=== PATIENT | female | born 1990 | race Caucasian/White ===

== ENCOUNTER 2016-05-13 14:29 | Emergency (ER) | payer OTHER ==
[~2016-05-13] VITALS: Ht 167.6 cm; Wt 64.9 kg
[~2016-05-13 14:29] MED LIST: AMOXICILLIN500 MG PO; AMOXIL500 MG PO; AUGMENTIN 875 M1 TAB PO; AUGMENTIN 875875 MG PO; BIAXIN500 MG PO; BROMFED-DM 480480 ML PO; CLARITIN10 MG PO; EES400 MG PO; KEFLEX500 M1 PO; KEFLEX500 MG PO; LAMICTAL100 MG PO; LIDEX 0.05% CRE15 GM T; LOTRISONE 0.05%1 CRE TP; MACROBID100 M1 PO; MEDROL DOSEPAK4 MG PO; MOTRIN800 MG PO; NORCO 325 MG-51 TAB PO; OMNICEF300 MG PO; PHENERGAN25 M1 PO; POLYSPORIN OINT15 GM T; PREDNICOT10 MG PO; PRENATAL1 TA3 PO; PROVENTIL0.09 MG/AC IH; TRAMADOL HCL50 MG PO; ULTRAM50 MG PO; VOLTAREN50 M1 PO; ZITHROMAX Z PA250 MG PO; ZOFRAN4 MG PO
[2016-05-13] MEDS ORDERED: PREPLUS CA-FE1 EACH PO (14:39)
[2016-05-13] MEDS ORDERED: AMOXICILLIN500 M3 PO (16:21)
[2016-05-13] MEDS ORDERED: CEPACOL SORE T1 EAC1 MM (16:22)
== END 2016-05-13 14:54 | disposition home or self-care (01) ==
LOC: ED 14:29
DX: J02.9 Acute pharyngitis, unspecified (principal); R09.81 Nasal congestion; H92.03 Otalgia, bilateral

== ENCOUNTER → 2016-11-10 | Outpatient (CLI) | payer OTHER ==
[~2016-11-10] MED LIST changes: +AMOXICILLIN500 M3 PO; +CEPACOL SORE T1 EAC1 MM; +PREPLUS CA-FE1 EACH PO
== END | disposition home or self-care (01) ==
LOC: US 10:08
DX: Z34.80 Encounter for supervision of other normal pregnancy, unspecified trimester (principal); Z3A.00 Weeks of gestation of pregnancy not specified

== ENCOUNTER 2020-06-04 15:28 | Emergency (ER) | payer OTHER ==
[~2020-06-04] VITALS: Ht 165.1 cm; Wt 59.0 kg
[~2020-06-04 15:28] MED LIST changes: +Motrin,Rufen800 MG PO; +NORCO 5-325 TA1 EACH PO
[2020-06-04 16:06] LABS: BASO % 0.2 % (0.0-1.0); EOS % 0.4 % (1.0-4.0); HEMATOCRIT 40.8 % (37.0-47.0); LYMPH % 10.5 % (27.0-41.0); MEAN CELL VOLUME 88.3 fl (81.0-99.0); MEAN CORPUSCULAR HGB 29.2 pg (27.0-31.0); MEAN CORPUSCULAR HGB CONC 33.1 g/dl (33.0-37.0); MEAN PLATELET VOLUME 9.8 fl (9.6-12.3); MONO # 0.4 10*3/uL (0.1-1.0); MONO % 4.3 % (3.0-9.0); NEUT # 8.3 10*3/uL (2.3-7.9); NEUT % 84.4 % (47.0-73.0); PLATELET COUNT AUTOMATED 289 10*3/uL (130-400); RED BLOOD COUNT 4.62 10*6/uL (4.10-5.10); RED CELL DISTRI WIDTH 12.7 % (0-14.5); WHITE BLOOD COUNT 9.9 10*3/uL (4.8-10.8)
[2020-06-04 16:20] LABS: ACT PARTIAL THROMBO TIME 26.8 SECONDS (20.0-32.1); INTERNATIONAL NORM RATIO 1.1 (2.0-3.5)
[2020-06-04 16:24] LABS: ALBUMIN 3.8 gm/dl (3.1-4.5); ALKALINE PHOSPHATASE 67 U/L (45-117); BUN 9 mg/dl (7-24); CHLORIDE 102 mmol/L (98-107); CREATININE 0.83 mg/dL (0.55-1.02); POTASSIUM 3.6 mmol/L (3.5-5.1); SGOT/AST 18 IU/L (3-35); SGPT/ALT 24 U/L (12-78); SODIUM 134 mmol/L (136-145); TOTAL PROTEIN 7.8 gm/dL (6.4-8.2)
[2020-06-04 16:28] LABS: BETA-HCG, QUANT < 1.0 mIU/mL (1-3)
[2020-06-04] MEDS ORDERED: LEXAPRO10 MG PO (16:34)
== END 2020-06-04 16:43 | disposition home or self-care (01) ==
LOC: ED 15:28
PROVIDERS: Family Medicine
DX: F32.9 Major depressive disorder, single episode, unspecified (principal); R53.83 Other fatigue; F17.200 Nicotine dependence, unspecified, uncomplicated; Z79.899 Other long term (current) drug therapy

== ENCOUNTER 2020-07-07 08:31 | Emergency (ER) | payer OTHER ==
[~2020-07-07] VITALS: Wt 59.0 kg
[~2020-07-07 08:31] MED LIST changes: +LEXAPRO10 MG PO
== END 2020-07-07 09:43 | disposition left against medical advice (07) ==
LOC: ED 08:31
DX: T40.601A Poisoning by unspecified narcotics, accidental (unintentional), initial encounter (principal); R40.20 Unspecified coma; F32.9 Major depressive disorder, single episode, unspecified; Z53.29 Procedure and treatment not carried out because of patient's decision for other reasons; Z79.899 Other long term (current) drug therapy; Y92.89 Other specified places as the place of occurrence of the external cause

== ENCOUNTER 2020-10-17 23:05 | Emergency (ER) | payer OTHER ==
[~2020-10-17] VITALS: Ht 165.1 cm; Wt 64.9 kg
[2020-10-17] MEDS ORDERED: SUBOXONE 8 MG-1 EACH SL (23:27)
[2020-10-18] MEDS ORDERED: HYDROCODONE-AC1 EAC1 PO (04:39)
== END 2020-10-18 05:06 | disposition home or self-care (01) ==
LOC: ED 23:05
DX: S52.591A Other fractures of lower end of right radius, initial encounter for closed fracture (principal); S52.611A Displaced fracture of right ulna styloid process, initial encounter for closed fracture; F17.200 Nicotine dependence, unspecified, uncomplicated; Z79.899 Other long term (current) drug therapy; Y04.0XXA Assault by unarmed brawl or fight, initial encounter; Y93.89 Activity, other specified; Y92.89 Other specified places as the place of occurrence of the external cause; Y99.9 Unspecified external cause status

== ENCOUNTER 2020-11-13 19:57 | Emergency (ER) | payer OTHER ==
[~2020-11-13] VITALS: Ht 165.1 cm; Wt 64.9 kg
[~2020-11-13 19:57] MED LIST changes: +HYDROCODONE-AC1 EAC1 PO; +SUBOXONE 8 MG-1 EACH SL
[2020-11-13 20:41] LABS: BILIRUBIN Negative (Negative); BLOOD Negative (Negative); CLARITY Turbid (Clear); COLOR Yellow (Yellow); GLUCOSE Negative (Negative); KETONE Negative (Negative); LEUKO ESTERASE 3+ (Negative); NITRITE Negative (Negative)
[2020-11-13 20:54] LABS: BACTERIA 3+; EPITHELIAL CELLS 31-40; WBC 41-50 wbc/hpf (0-5)
== END 2020-11-13 21:04 | disposition home or self-care (01) ==
LOC: ED 19:57
PROVIDERS: Physician Assistant
DX: N89.8 Other specified noninflammatory disorders of vagina (principal); Z20.2 Contact with and (suspected) exposure to infections with a predominantly sexual mode of transmission; Z79.899 Other long term (current) drug therapy

== ENCOUNTER 2021-07-11 13:32 | Inpatient (IN) | payer OTHER ==
[~2021-07-11] VITALS: Ht 167.6 cm; Wt 62.7 kg
[2021-07-11 13:37] VITALS: BP 116/68
[2021-07-11 14:09] LABS: BASO % 0.4 % (0.0-1.0); EOS # 0.2 10*3/uL (0.0-0.4); HEMATOCRIT 38.5 % (37.0-47.0); LYMPH # 2.8 10*3/uL (1.3-4.4); LYMPH % 37.7 % (27.0-41.0); MEAN CELL VOLUME 90.2 fl (81.0-99.0); MEAN CORPUSCULAR HGB 29.5 pg (27.0-31.0); MEAN CORPUSCULAR HGB CONC 32.7 g/dl (33.0-37.0); MEAN PLATELET VOLUME 10.2 fl (9.6-12.3); MONO # 0.6 10*3/uL (0.1-1.0); MONO % 7.9 % (3.0-9.0); NEUT # 3.7 10*3/uL (2.3-7.9); NEUT % 50.7 % (47.0-73.0); PLATELET COUNT AUTOMATED 245 10*3/uL (130-400); RED BLOOD COUNT 4.27 10*6/uL (4.10-5.10); RED CELL DISTRI WIDTH 13.1 % (0-14.5); WHITE BLOOD COUNT 7.4 10*3/uL (4.8-10.8)
[2021-07-11 14:30] LABS: ALKALINE PHOSPHATASE 54 U/L (45-117); BUN 11 mg/dl (7-24); CHLORIDE 103 mmol/L (98-107); CREATININE 0.59 mg/dL (0.55-1.02); POTASSIUM 4.2 mmol/L (3.5-5.1); SGOT/AST 9 IU/L (3-35); SGPT/ALT 13 U/L (12-78); SODIUM 138 mmol/L (136-145)
[2021-07-11 14:38] LABS: ACETAMINOPHEN (TYLENOL) < 5.0 ug/ml (10-30); ETHYL ALCOHOL < 3.0 mg/dl (<3)
[2021-07-11 15:15] VITALS: BP 99/43
[2021-07-11 15:24] LABS: BILIRUBIN Negative (Negative); BLOOD 1+ (Negative); CLARITY Clear (Clear); COLOR Yellow (Yellow); GLUCOSE Negative (Negative); KETONE Negative (Negative); LEUKO ESTERASE Negative (Negative); NITRITE Negative (Negative); SPECIFIC GRAVITY 1.015 (1.001-1.030)
[2021-07-11 16:14] LABS: BACTERIA TRACE; WBC 0-2 wbc/hpf (0-5)
[2021-07-11 16:20] VITALS: BP 101/51
[2021-07-11 17:15] VITALS: BP 93/44
[2021-07-11 17:38] LABS: URINE AMPHETAMINES < 1000 (1000ng/ml); URINE BARBITURATES < 200 (200ng/ml); URINE BENZODIAZEPINES < 200 (200ng/ml); URINE CANNABINOIDS (THC) > 50 (50ng/ml); URINE COCAINE < 300 (300ng/ml); URINE METHADONE < 300 (300ng/ml); URINE OPIATES < 300 (300ng/ml)
[2021-07-11 17:48] LABS: URINE PHENCYCLIDINE < 25 (25ng/ml)
[2021-07-11 20:00] VITALS: BP 117/63
[2021-07-12] VITALS: BP 122/66
[2021-07-12 06:27] LABS: BUN 14 mg/dl (7-24); CHLORIDE 109 mmol/L (98-107); POTASSIUM 3.7 mmol/L (3.5-5.1); SODIUM 140 mmol/L (136-145)
[2021-07-12 06:29] LABS: CREATININE 0.49 mg/dL (0.55-1.02)
[2021-07-12 06:46] LABS: BASO % 0.2 % (0.0-1.0); EOS # 0.2 10*3/uL (0.0-0.4); EOS % 1.8 % (1.0-4.0); HEMATOCRIT 40.4 % (37.0-47.0); LYMPH # 2.3 10*3/uL (1.3-4.4); LYMPH % 25.4 % (27.0-41.0); MEAN CELL VOLUME 88.6 fl (81.0-99.0); MEAN CORPUSCULAR HGB 29.6 pg (27.0-31.0); MEAN CORPUSCULAR HGB CONC 33.4 g/dl (33.0-37.0); MEAN PLATELET VOLUME 10.8 fl (9.6-12.3); MONO # 0.6 10*3/uL (0.1-1.0); MONO % 7.1 % (3.0-9.0); NEUT # 5.8 10*3/uL (2.3-7.9); NEUT % 65.2 % (47.0-73.0); PLATELET COUNT AUTOMATED 250 10*3/uL (130-400); RED BLOOD COUNT 4.56 10*6/uL (4.10-5.10); RED CELL DISTRI WIDTH 12.7 % (0-14.5); WHITE BLOOD COUNT 8.9 10*3/uL (4.8-10.8)
[2021-07-12 16:00] VITALS: BP 115/69
[2021-07-12 20:00] VITALS: BP 121/54
[2021-07-13] VITALS: BP 107/70
[2021-07-13 06:20] LABS: BUN 13 mg/dl (7-24); CHLORIDE 107 mmol/L (98-107); CREATININE 0.58 mg/dL (0.55-1.02); SODIUM 138 mmol/L (136-145)
[2021-07-13 06:22] LABS: BASO % 0.3 % (0.0-1.0); EOS # 0.1 10*3/uL (0.0-0.4); EOS % 1.1 % (1.0-4.0); HEMATOCRIT 42.2 % (37.0-47.0); LYMPH # 2.4 10*3/uL (1.3-4.4); LYMPH % 23.3 % (27.0-41.0); MEAN CELL VOLUME 87.2 fl (81.0-99.0); MEAN CORPUSCULAR HGB 29.1 pg (27.0-31.0); MEAN CORPUSCULAR HGB CONC 33.4 g/dl (33.0-37.0); MEAN PLATELET VOLUME 10.5 fl (9.6-12.3); MONO # 0.7 10*3/uL (0.1-1.0); MONO % 6.5 % (3.0-9.0); NEUT # 6.9 10*3/uL (2.3-7.9); NEUT % 68.6 % (47.0-73.0); PLATELET COUNT AUTOMATED 280 10*3/uL (130-400); RED BLOOD COUNT 4.84 10*6/uL (4.10-5.10); RED CELL DISTRI WIDTH 12.8 % (0-14.5); WHITE BLOOD COUNT 10.1 10*3/uL (4.8-10.8)
[2021-07-13 08:00] VITALS: BP 111/74
[2021-07-13 12:00] VITALS: BP 109/65
== END 2021-07-13 13:03 | disposition left against medical advice (07) | DRG 770 ==
LOC: ED 13:32 → EDHOLD 16:06 → 5E 16:06
PROVIDERS: Internal Medicine; Physician Assistant; Student in an Organized Health Care Education/Training Program; ADMIT Internal Medicine; ATTEND Internal Medicine
DX: F11.10 Opioid abuse, uncomplicated (principal); R00.1 Bradycardia, unspecified; R73.9 Hyperglycemia, unspecified; F17.210 Nicotine dependence, cigarettes, uncomplicated; F32.A Depression, unspecified; F12.10 Cannabis abuse, uncomplicated; Z53.29 Procedure and treatment not carried out because of patient's decision for other reasons; Z71.6 Tobacco abuse counseling

== ENCOUNTER 2022-03-05 14:07 | Emergency (ER) | payer OTHER | END 2022-03-05 14:28 | disposition left against medical advice (07) | LOC: ED 14:07 | DX: R20.0 Anesthesia of skin (principal); Z53.21 Procedure and treatment not carried out due to patient leaving prior to being seen by health care provider ==

== ENCOUNTER 2023-01-13 17:05 | Emergency (ER) | payer OTHER ==
[~2023-01-13] VITALS: Ht 167.6 cm; Wt 65.8 kg
== END 2023-01-13 19:40 | disposition home or self-care (01) ==
LOC: ED 17:05
DX: S01.01XA Laceration without foreign body of scalp, initial encounter (principal); Z98.890 Other specified postprocedural states; F17.200 Nicotine dependence, unspecified, uncomplicated; F11.10 Opioid abuse, uncomplicated; F12.90 Cannabis use, unspecified, uncomplicated; W01.190A Fall on same level from slipping, tripping and stumbling with subsequent striking against furniture, initial encounter; Y93.89 Activity, other specified; Y92.009 Unspecified place in unspecified non-institutional (private) residence as the place of occurrence of the external cause; Y99.8 Other external cause status

== ENCOUNTER 2023-02-20 02:37 | Emergency (ER) | payer OTHER ==
[~2023-02-20] VITALS: Ht 167.6 cm; Wt 61.2 kg
== END 2023-02-20 02:54 | disposition home or self-care (01) ==
LOC: ED 02:37
DX: S01.01XD Laceration without foreign body of scalp, subsequent encounter (principal); F17.200 Nicotine dependence, unspecified, uncomplicated; Z48.02 Encounter for removal of sutures; Z98.890 Other specified postprocedural states; W22.8XXD Striking against or struck by other objects, subsequent encounter

== ENCOUNTER 2023-09-02 07:12 | Emergency (ER) | payer OTHER | END 2023-09-02 07:18 | disposition left against medical advice (07) | LOC: ED 07:12 | DX: R40.4 Transient alteration of awareness (principal); F17.200 Nicotine dependence, unspecified, uncomplicated; Z53.29 Procedure and treatment not carried out because of patient's decision for other reasons; Z98.890 Other specified postprocedural states ==

== ENCOUNTER 2023-09-22 12:35 | Emergency (ER) | payer OTHER ==
[2023-09-22] MEDS ORDERED: OCUFLOX 0.3% 5 M5 ML OT (14:20)
[2023-09-22] MEDS ORDERED: AMOX-CLAV 875-1 EACH PO (14:20)
== END 2023-09-22 14:27 | disposition home or self-care (01) ==
LOC: ED 12:35
DX: H66.92 Otitis media, unspecified, left ear (principal); H61.22 Impacted cerumen, left ear; H60.92 Unspecified otitis externa, left ear; F17.200 Nicotine dependence, unspecified, uncomplicated; Z98.890 Other specified postprocedural states

== ENCOUNTER 2023-11-26 15:06 | Emergency (ER) | payer OTHER ==
[~2023-11-26] VITALS: Ht 167.6 cm; Wt 72.6 kg
[~2023-11-26 15:06] MED LIST changes: +AMOX-CLAV 875-1 EACH PO; +OCUFLOX 0.3% 5 M5 ML OT
[2023-11-26] MEDS ORDERED: AMOX-CLAV 875-1 EACH PO (16:05)
== END 2023-11-26 16:16 | disposition home or self-care (01) ==
LOC: ED 15:06
DX: H66.92 Otitis media, unspecified, left ear (principal); F17.200 Nicotine dependence, unspecified, uncomplicated; F19.10 Other psychoactive substance abuse, uncomplicated; F12.90 Cannabis use, unspecified, uncomplicated; Z98.890 Other specified postprocedural states